=== PATIENT | female | born 1945 | race African-American/Black ===

== ENCOUNTER 2020-07-20 08:28 | Emergency (ER) | payer OTHER ==
[~2020-07-20] VITALS: Ht 157.5 cm; Wt 86.2 kg
[2020-07-20] MEDS ORDERED: NORVASC5 MG PO (08:54)
[2020-07-20] MEDS ORDERED: NORCO5 PO (11:35)
[2020-07-20] MEDS ORDERED: PREDNISONE 20 M20 MG PO (11:37)
[2020-07-20 12:14] VITALS: BP 114/65
== END 2020-07-20 12:16 | disposition home or self-care (01) ==
LOC: EDSEX 08:28 → ER 08:28
DX: M71.22 Synovial cyst of popliteal space [Baker], left knee (principal)

== ENCOUNTER 2021-03-25 13:25 | Emergency (ER) | payer OTHER ==
[~2021-03-25] VITALS: Ht 172.7 cm; Wt 81.7 kg
[~2021-03-25 13:25] MED LIST: NORCO5 PO; NORVASC5 MG PO; PREDNISONE 20 M20 MG PO
[2021-03-25] MEDS ORDERED: DRIZALMA SPRINK60 MG PO (13:49)
[2021-03-25] MEDS ORDERED: TRAMADOL 50 MG50 MG PO (13:50)
[2021-03-25] MEDS ORDERED: ZOLPIDEM TARTRA10 MG PO (13:50)
[2021-03-25] MEDS ORDERED: ZINC50 M1 PO (13:51)
[2021-03-25 13:53] LABS: ABSOLUTE NEUTROPHILS 2.9 thou/uL (1.4-8.2); BASOPHILS 0.8 % (0.0-2.0); EOSINOPHILS 0.2 % (0.0-3.0); HEMATOCRIT 39.4 % (37.0-47.0); HEMOGLOBIN 13.4 gm/dL (12.0-15.0); LYMPHOCYTES 27.8 % (24.0-44.0); MCH 27.3 pg (26.0-34.0); MCHC 33.9 g/dL (28.0-37.0); MCV 80.4 fL (80.0-100.0); MONOCYTES 11.4 % (1.0-8.0); PLATELET COUNT 261 thou/uL (150-400); POLYS 59.8 % (36.0-66.0); RDW 14.1 % (10.5-14.5); WBC 4.8 thou/uL (4.0-11.0)
[2021-03-25 14:15] LABS: CALCIUM 9.6 mg/dL (8.5-10.1); CREATININE 0.7 mg/dL (0.6-1.0); POTASSIUM 3.3 mmol/L (3.5-5.1)
[2021-03-25 14:23] VITALS: BP 116/82
[2021-03-25 14:25] LABS: ALBUMIN 3.5 g/dL (3.4-5.0); TOTAL BILIRUBIN 0.4 mg/dL (0.2-1.0); TOTAL PROTEIN 7.1 g/dL (6.4-8.2)
[2021-03-25 15:33] LABS: URINE BILIRUBIN NEGATIVE (Negative); URINE BLOOD TRACE (Negative); URINE CLARITY CLEAR; URINE COLOR YELLOW; URINE GLUCOSE-RANDOM* NEGATIVE (Negative); URINE KETONES NEGATIVE (Negative); URINE LEUKOCYTES-REFLEX NEGATIVE (Negative); URINE NITRITE-REFLEX NEGATIVE (Negative); URINE PROTEIN (DIPSTICK) NEGATIVE (Negative); URINE UROBILINOGEN 0.2 E.U./dl (0.2-1.0)
[2021-03-25] MEDS ORDERED: ZOFRAN ODT4 MG PO (15:54)
[2021-03-25] MEDS ORDERED: TAMIFLU75 MG PO (15:54)
--- NOTE | 2021-03-26 08:28 | EKG ---
[facility] [place] [employer] [place] [address] ELECTROCARDIOGRAM REPORT Name: SABRINA AVILA Room #: [facility]#: [id number] Admission: 03/25/21 Attend Phys: Discharge: 03/25/21 Date of : 45 Report #: [id number] [facility] ED Test Date: 2021-03-25 Test Time: 13:47:52 Pat Name: SABRINA AVILA Department: Room: Gender: F Chief Analytics Officer: kathleen sandoval : 1945 Requested By: Lucius Bautista Order Number: [id number] MD: Rogerio Arvizu Measurements Intervals [place] Rate: 86 P: 25 NM: 165 QRS: -31 QRSD: 84 T: 30 QT: 378 QTc: 452 Interpretive Statements Sinus rhythm Abnormal R-wave progression, early transition Nonspecific T wave abnormality No previous ECG available for comparison Electronically Signed On 03-26-2021 8:28:02 MANAGER VEHICLE by Rogerio Arvizu [email or web address] <ELECTRONICALLY SIGNED> By: Rogerio Arvizu MD, [facility] 03/26/21 0828 1347 1347 Rogerio Arvizu MD, FACC /EPI
== END 2021-03-25 16:19 | disposition home or self-care (01) ==
LOC: ER 13:25
PROVIDERS: Emergency Medicine
DX: J11.1 Influenza due to unidentified influenza virus with other respiratory manifestations (principal); Z20.822 Contact with and (suspected) exposure to COVID-19; R11.2 Nausea with vomiting, unspecified; Z79.899 Other long term (current) drug therapy

== ENCOUNTER 2021-04-13 13:49 | Emergency (ER) | payer OTHER ==
[~2021-04-13] VITALS: Ht 157.5 cm; Wt 81.7 kg
[~2021-04-13 13:49] MED LIST changes: +DRIZALMA SPRINK60 MG PO; +TAMIFLU75 MG PO; +TRAMADOL 50 MG50 MG PO; +ZINC50 M1 PO; +ZOFRAN ODT4 MG PO; +ZOLPIDEM TARTRA10 MG PO
[2021-04-13 14:31] LABS: ABSOLUTE NEUTROPHILS 2.8 thou/uL (1.4-8.2); BASOPHILS 0.9 % (0.0-2.0); EOSINOPHILS 1.9 % (0.0-3.0); HEMATOCRIT 37.6 % (37.0-47.0); HEMOGLOBIN 12.6 gm/dL (12.0-15.0); LYMPHOCYTES 43.6 % (24.0-44.0); MCH 27.5 pg (26.0-34.0); MCHC 33.6 g/dL (28.0-37.0); MCV 81.9 fL (80.0-100.0); MONOCYTES 9.8 % (1.0-8.0); PLATELET COUNT 262 thou/uL (150-400); POLYS 43.8 % (36.0-66.0); RBC 4.59 mil/uL (4.20-5.00); RDW 14.8 % (10.5-14.5); WBC 6.3 thou/uL (4.0-11.0)
[2021-04-13 14:46] LABS: CALCIUM 9.2 mg/dL (8.5-10.1); CREATININE 0.7 mg/dL (0.6-1.0); POTASSIUM 3.5 mmol/L (3.5-5.1)
[2021-04-13 14:56] LABS: ALBUMIN 3.4 g/dL (3.4-5.0); TOTAL BILIRUBIN 0.3 mg/dL (0.2-1.0); TOTAL PROTEIN 6.9 g/dL (6.4-8.2)
[2021-04-13] MEDS ORDERED: NAPROSYN500 MG PO (15:33)
[2021-04-13] MEDS ORDERED: MECLIZINE HCL25 M1 PO (15:33)
[2021-04-13 15:58] VITALS: BP 130/63
--- NOTE | 2021-04-14 09:51 | EKG ---
[facility] [place] [address] ELECTROCARDIOGRAM REPORT Name: SABRINA AVILA Room #: [facility]#: [id number] Admission: 04/13/21 Attend Phys: Discharge: 04/13/21 Date of : 45 Report #: [id number] [facility] ED Test Date: 2021-04-13 Test Time: 14:06:21 Pat Name: SABRINA AVILA Department: Room: Gender: F Wire Transfer Clerk: SHARAD PAINTINGB: 1945 Requested By: Perla Potts Order Number: [id number] MD: Tima Kaplan Measurements Intervals [place] Rate: 79 P: -12 TN: 167 QRS: -28 QRSD: 79 T: 20 QT: 390 QTc: 448 Interpretive Statements Sinus rhythm Left atrial enlargement Low voltage, precordial leads Left ventricular hypertrophy Compared to ECG 03/25/2021 13:47:52 Atrial abnormality now present Low QRS voltage now present Left ventricular hypertrophy now present T-wave abnormality no longer present Electronically Signed On 04-14-2021 9:51:32 SUPERVISOR MOLDING by Tima Kaplan [email or web address] <ELECTRONICALLY SIGNED> By: Tima Kaplan MD 04/14/21 0951 1406 05 Tima Kaplan MD /[facility]
== END 2021-04-13 15:58 | disposition home or self-care (01) ==
LOC: ER 13:49
PROVIDERS: Nurse Practitioner
DX: R51.9 Headache, unspecified (principal); R42 Dizziness and giddiness; I10 Essential (primary) hypertension; Z79.899 Other long term (current) drug therapy